=== PATIENT | male | born 1980 | race Caucasian/White ===

== ENCOUNTER 2021-02-19 08:06 | Emergency (ER) | payer OTHER ==
[~2021-02-19] VITALS: Ht 188 cm; Wt 99.8 kg
[~2021-02-19 08:06] MED LIST: AMOXICILLIN875 MG PO; NOHOMEMEDICATIONS
[2021-02-19 09:45] VITALS: BP 166/116
== END 2021-02-19 09:45 | disposition home or self-care (01) ==
LOC: ER 08:06
DX: R11.0 Nausea (principal); F10.129 Alcohol abuse with intoxication, unspecified; F17.200 Nicotine dependence, unspecified, uncomplicated; Z98.890 Other specified postprocedural states; Z79.899 Other long term (current) drug therapy